=== PATIENT | female | born 1955 | race Caucasian/White ===

== ENCOUNTER → 2016-10-09 | Outpatient (CLI) | payer MEDICARE, OTHER ==
[2014-08-26 11:27] VITALS: BP 134/79
[~2016-10-09] MED LIST: ALPR0.5T PO; CEPH-264 PO; DIPH25CA58 PO; ERYT30GE2 TP; ESOM40CA PO; FAMO-63 PO; FERR-26 PO; FLUO20CA16 PO; GABA-585 PO; HYDR12.53 PO; IBUP200T58 PO; LISI20TA PO; METO-269 PO; METR55GE TP; OXYC-244 PO; OXYC10TA32 PO; POTA20TA4 PO; SIMV20TA3 PO; Tizanidine Hcl PO
--- NOTE | 2016-10-09 11:05 | RAD ---
DATE: 10/09/2016 EXAM: DIGITAL SCREEN BILAT W/CAD HISTORY: Routine screening COMPARISON: 03/26/2015 This study was interpreted with the benefit of Computerized Aided Detection (CAD). FINDINGS: There are scattered fibroglandular densities in the breasts in a heterogeneous pattern. No new or enlarging breast densities are seen. Minimal benign type calcifications present. No suspicious microcalcifications have developed. Benign-appearing lymph node type densities are present in the axillary regions. IMPRESSION: Stable mammograms without evidence of malignancy. BI-RADS CATEGORY: 2 BENIGN FINDING(S) RECOMMENDED FOLLOW-UP: 12M 12 MONTH FOLLOW-UP PQRS compliance statement: Patient information was entered into a reminder system with a target due date for the next mammogram. Mammography is a sensitive method for finding small breast cancers, but it does not detect them all and is not a substitute for careful clinical examination. A negative mammogram does not negate a clinically suspicious finding and should not result in delay in biopsying a clinically suspicious abnormality. "Our facility is accredited by the [employer] Mammography [employer]."
== END | disposition home or self-care (01) ==
LOC: MAMMO 10:24
PROVIDERS: ATTEND Internal Medicine
DX: Z12.31 Encounter for screening mammogram for malignant neoplasm of breast (principal)
CPT/HCPCS: G0202; 77067

== ENCOUNTER → 2016-11-08 | Outpatient (CLI) | payer MEDICARE, OTHER ==
[2014-08-26 11:27] VITALS: BP 134/79
--- NOTE | 2016-11-08 10:03 | KCIC ---
PROCEDURE MR of the left hip HISTORY Left hip pain. Trochanteric bursitis. Pain for about 1 year, getting worse. TECHNIQUE Routine multiplanar sequences are obtained. COMPARISON None FINDINGS No evidence of bone destruction or acute fracture. No femoral head osteonecrosis. Small subcortical lesion at the anterior left femoral neck, likely a small reactive cyst. No significant joint effusion. Small partial-thickness undersurface tear at the superior labrum, at 12 o'clock. No advanced osteoarthritis. High-grade tear, likely a complete rupture, of the left gluteus minimus tendon from greater trochanter with about 1 centimeter retraction.. Mild surrounding fluid. Left gluteus medius tendon is intact. Hamstring tendon intact. Iliopsoas tendon intact. No acute soft tissue fluid collection identified. Diagnostically limited large [id number] coronal survey sequence demonstrate a probable right acetabular labral tear as well. IMPRESSION 1. Small tear of the left labrum, at 12 o'clock. 2. High-grade tear of the left gluteus minimus tendon at the greater trochanter attachment. 3. Diagnostically limited survey scan also suggests a right labrum tear. Electronically signed by: Santo oCllins MD (Nov 08, 2016 10:01:47)
== END | disposition home or self-care (01) ==
LOC: KCIC MRI 07:41
PROVIDERS: ATTEND Nurse Practitioner Gerontology
DX: S73.192A Other sprain of left hip, initial encounter (principal); M70.62 Trochanteric bursitis, left hip; X58.XXXA Exposure to other specified factors, initial encounter; Y93.89 Activity, other specified; Y92.89 Other specified places as the place of occurrence of the external cause; Y99.8 Other external cause status
CPT/HCPCS: 73721

== ENCOUNTER → 2017-07-26 | Outpatient (CLI) | payer MEDICARE, OTHER ==
[2017-07-26] MEDS: GADOBUTROL 7.5 MMOL/7.5 ML VIAL IV (08:45)
== END | disposition home or self-care (01) ==
LOC: KCIC MRI 08:00
DX: R41.0 Disorientation, unspecified (principal); G93.89 Other specified disorders of brain; I67.1 Cerebral aneurysm, nonruptured
CPT/HCPCS: 70553; A9585

== ENCOUNTER → 2017-10-19 | Outpatient (CLI) | payer MEDICARE, OTHER | END | disposition home or self-care (01) | LOC: MAMMO 09:34 | DX: N64.4 Mastodynia (principal) | CPT/HCPCS: 76641; 77066; G0279 ==

== ENCOUNTER → 2018-05-22 | Outpatient (CLI) | payer MEDICARE, OTHER ==
[2014-08-26 11:27] VITALS: BP 134/79
[~2018-05-22] MED LIST changes: -FERR-26 PO; +FERR325T14 PO; -OXYC-244 PO; +OXYC-327 PO; -OXYC10TA32 PO; +OXYC10TA45 PO
--- NOTE | 2018-05-22 16:33 | KCIC ---
History: Postmenopausal, white female, screening, history of adult fracture. Comparison: March 26, 2015. Findings: Bone Densitometry was performed with dual photon absorption of the lumbar spine and left hip. Lumbar Spine: Bone density is 0.892 g/cm2 for L1-L4. T-Score is -1.4. Z-score is 0.3. Bone mineral density of the lumbar spine demonstrates 10.4% increase from previous study. There is mild levoconvex scoliosis of the lumbar spine. Left hip: Bone density is 0.755 g/cm2. T-Score is -1.5. Z-score is -0.3. Bone mineral density of the left hip demonstrates 2.8% decrease from previous study. IMPRESSION: Osteopenia of the lumbar spine and left hip. World Health definition of osteoporosis and osteopenia: Normal = T-Score at or above -1.0; osteopenia = T-score between -1.0 and -2.5; osteoporosis = T-score at or below -2.5 Electronically signed by: Santo Lehman MD (05/22/2018 4:31 PM) [id number]
== END | disposition home or self-care (01) ==
LOC: KCIC DEXA 11:14
PROVIDERS: ATTEND Pediatrics
DX: Z13.820 Encounter for screening for osteoporosis (principal); M85.89 Other specified disorders of bone density and structure, multiple sites
CPT/HCPCS: 77080

== ENCOUNTER → 2018-06-19 | Outpatient (CLI) | payer MEDICARE, OTHER ==
[2014-08-26 11:27] VITALS: BP 134/79
--- NOTE | 2018-06-19 09:25 | RAD ---
Bilateral lower extremity arterial ultrasound with ankle-brachial indices, 06/19/2018: HISTORY: Leg weakness, claudication, diminished pulses Duplex evaluation of the major arteries in both lower extremities was performed including grayscale, color-flow and spectral Doppler analysis. There are mild scattered atherosclerotic plaques bilaterally. The right common femoral, superficial femoral and popliteal arteries demonstrate triphasic Doppler waveforms. No significant focal velocity acceleration is seen to suggest significant stenosis. Patent anterior tibial, posterior tibial and peroneal arteries are present in the right lower leg demonstrating biphasic and triphasic Doppler waveforms. The right dorsalis pedis artery demonstrates a good triphasic Doppler waveform. On the left, the common femoral, superficial femoral and popliteal arteries all demonstrate triphasic Doppler waveforms. No significant velocity acceleration is seen in these vessels to suggest significant focal stenosis. Patent posterior tibial, anterior tibial and peroneal arteries are present in the left calf with predominantly triphasic Doppler waveforms. The left dorsalis pedis artery demonstrates a good triphasic Doppler waveform. Resting MAMIE measurements were also obtained. Normal MAMIE readings of 1.3 on the right and 1.3 on the left were obtained. IMPRESSION: 1. Mild scattered atherosclerotic plaquing bilaterally without evidence of significant arterial stenotic or occlusive disease. 2. Normal bilateral resting MAMIE measurements. Electronically signed by: Kaveh Arce MD (06/19/2018 9:22 AM) [facility]
== END | disposition home or self-care (01) ==
LOC: US 06:41
PROVIDERS: ATTEND Internal Medicine Pulmonary Disease
DX: I70.293 Other atherosclerosis of native arteries of extremities, bilateral legs (principal)
CPT/HCPCS: 93922; 93925

== ENCOUNTER 2018-11-12 10:54 | Emergency (ER) | payer MEDICARE, OTHER ==
[~2018-11-12] VITALS: Ht 177.8 cm; Wt 70.8 kg
[~2018-11-12 10:54] MED LIST changes: -HYDR12.53 PO; +HYDR12.575 PO; -OXYC-327 PO; -OXYC10TA45 PO; +OXYC10TA46 PO; +OXYC1TAB19 PO
--- NOTE | 2018-11-12 11:21 | PHYS DOC ---
Past Medical History Past Medical History: COPD, Hypertension Additional Past Medical Histor: lung nodules, brain aneurysm, Past Surgical History: Appendectomy, Additional Past Surgical Histo: back surgery, brain surgery from aneurysm Alcohol Use: None Drug Use: None Adult General Chief Complaint Chief Complaint: FLANK PAIN [facility] HPI Patient is a 62 year old female with a history of COPD, hypertension, who presents to the ED today complaining of 8 out of 10 right flank pain that began one week ago. Patient states the pain is worse when she moves around especially trying to move herself patient denies any fever coughing or congestion. She states she has history of chronic shortness of breath from COPD. She states she does not use oxygen at home. Patient denies any urgency frequency dysuria. Review of Systems Review of Systems Constitutional: Denies fever or chills [] Eyes: Denies change in visual acuity, redness, or eye pain [] HENT: Denies nasal congestion or sore throat [] Respiratory: Reports chronic shortness of breath Denies cough Cardiovascular: No additional information not addressed in HPI [] GI: Reports right flank pain. Denies abdominal pain, nausea, vomiting, bloody stools or diarrhea [] : Denies dysuria or hematuria [] Musculoskeletal: Denies back pain or joint pain [] Integument: Denies rash or skin lesions [] Neurologic: Denies headache, focal weakness or sensory changes [] Endocrine: Denies polyuria or polydipsia [] All other systems were reviewed and found to be within normal limits, except as documented in this note. Current Medications Current Medications Current Medications Medications (Trade) Dose Ordered [facility] Start Time Stop Time Status Last Admin Dose Admin Fentanyl Citrate (Fentanyl 2ml Vial) 50 mcg PRN Q15MIN PRN 11/12/18 11:30 11/12/18 15:56 DC 11/12/18 11:37 50 MCG Allergies Allergies Allergies Coded Allergies Type Severity Reaction Last Updated Verified aspirin Allergy Intermediate 02/09/16 Yes codeine Allergy Intermediate itching 08/25/14 Yes morphine Allergy Intermediate "unconscious" 08/25/14 Yes Physical Exam Physical Exam Constitutional: Well developed, well nourished, no acute distress, non-toxic appearance. [] HENT: Normocephalic, atraumatic, bilateral external ears normal, oropharynx moist, no oral exudates, nose normal. [] Eyes: PERRLA, EOMI, conjunctiva normal, no discharge. [] Neck: Normal range of motion, no tenderness, supple, no stridor. [] Cardiovascular:Heart rate regular rhythm, no murmur [] Lungs & Thorax: Bilateral breath sounds clear to auscultation [] Abdomen: Bowel sounds normal, soft, no tenderness, no masses, no pulsatile masses. [] Skin: Warm, dry, no erythema, no rash. [] Back: No tenderness, mild right CVA tenderness. [] Extremities: No tenderness, no cyanosis, no clubbing, ROM intact, no edema. [] Neurologic: Alert and oriented X 3, normal motor function, normal sensory function, no focal deficits noted. [] Psychologic: Affect normal, judgement normal, mood normal. [] Current Patient Data Vital Signs Vital Signs Date Time Temp Pulse Resp B/P (MAP) Pulse Ox O2 Delivery O2 Flow Rate FiO2 11/12/18 15:30 82 20 135/80 (98) 89 Nasal Cannula 2.0 11/12/18 11:00 98.2 98.2 Lab Values Laboratory Tests Test 11/12/18 11:30 11/12/18 13:15 White Blood Count 5.1 x10^3/uL (4.0-11.0) Red Blood Count 3.67 x10^6/uL (3.50-5.40) Hemoglobin 8.0 g/dL (12.0-15.5) L Hematocrit 26.3 % (36.0-47.0) L Mean Corpuscular Volume 72 fL (79-100) L Mean Corpuscular Hemoglobin 22 pg (25-35) L Mean Corpuscular Hemoglobin Concent 30 g/dL (31-37) L Red Cell Distribution Width 20.4 % (11.5-14.5) H Platelet Count 290 x10^3/uL (140-400) Neutrophils (%) (Auto) 70 % (31-73) Lymphocytes (%) (Auto) 20 % (24-48) L Monocytes (%) (Auto) 8 % (0-9) Eosinophils (%) (Auto) 1 % (0-3) Basophils (%) (Auto) 1 % (0-3) Neutrophils # (Auto) 3.6 x10^3uL (1.8-7.7) Lymphocytes # (Auto) 1.0 x10^3/uL (1.0-4.8) Monocytes # (Auto) 0.4 x10^3/uL (0.0-1.1) Eosinophils # (Auto) 0.1 x10^3/uL (0.0-0.7) Basophils # (Auto) 0.0 x10^3/uL (0.0-0.2) Platelet Estimate Adequate (ADEQUATE) Polychromasia Occasional Hypochromasia Slight Anisocytosis Slight Microcytosis Slight Ovalocytes Occ Sodium Level 141 mmol/L (136-145) Potassium Level 3.3 mmol/L (3.5-5.1) L Chloride Level 106 mmol/L (98-107) Carbon Dioxide Level 27 mmol/L (21-32) Anion Gap 8 (6-14) Blood Urea Nitrogen 15 mg/dL (7-20) Creatinine 0.9 mg/dL (0.6-1.0) Estimated GFR (Cockcroft-Gault) 63.0 BUN/Creatinine Ratio 17 (6-20) Glucose Level 108 mg/dL (70-99) H Calcium Level 8.2 mg/dL (8.5-10.1) L Total Bilirubin 0.1 mg/dL (0.2-1.0) L Aspartate Amino Transferase (AST) 26 U/L (15-37) Alanine Aminotransferase (ALT) 22 U/L (14-59) Alkaline Phosphatase 77 U/L (46-116) Creatine Kinase 91 U/L (26-192) Creatine Kinase MB (Mass) 1.2 ng/mL (0.0-3.6) Creatine Kinase MB Relative Index 1.3 % (0-4) Troponin I Quantitative < 0.017 ng/mL (0.000-0.055) QG-Edr-J-Type Natriuretic Peptide 5961 pg/mL (0-124) H Total Protein 6.8 g/dL (6.4-8.2) Albumin 3.1 g/dL (3.4-5.0) L Albumin/Globulin Ratio 0.8 (1.0-1.7) L Lipase 179 U/L (73-393) Urine Collection Type Unknown Urine Color Yellow Urine Clarity Clear Urine pH 6.0 Urine Specific [place] 1.025 Urine Protein Negative mg/dL (NEG-TRACE) Urine Glucose (UA) Negative mg/dL (NEG) Urine Ketones (Stick) Negative mg/dL (NEG) Urine Blood Negative (NEG) Urine Nitrite Negative (NEG) Urine Bilirubin Negative (NEG) Urine Urobilinogen Dipstick 0.2 mg/dL (0.2 mg/dL) Urine Leukocyte Esterase Trace (NEG) Urine RBC 0 /HPF (0-2) Urine WBC 5-10 /HPF (0-4) Urine Squamous Epithelial Cells Mod /LPF Urine Bacteria Few /HPF (0-FEW) Urine Opiates Screen Pos (NEG) Urine Methadone Screen Neg (NEG) Urine Barbiturates Neg (NEG) Urine Phencyclidine Screen Neg (NEG) Urine Amphetamine/Methamphetamine Neg (NEG) Urine Benzodiazepines Screen Pos (NEG) Urine Cocaine Screen Neg (NEG) Urine Cannabinoids Screen Neg (NEG) Urine Ethyl Alcohol Neg (NEG) Laboratory Tests 11/12/18 11:30 Laboratory Tests 11/12/18 11:30 EKG EKG 11:[address] Field sinus rhythm HR 90 no STEMI[] Radiology/Procedures Radiology/Procedures []PROCEDURE: CT ABDOMEN PELVIS WO CONTRAST CT study of the abdomen and pelvis without contrast Clinical indications: Right flank pain for one week. COMPARISON: August 24, 2014. TECHNIQUE: Noncontrast helical CT scanning of the abdomen and pelvis was performed. Without contrast, the sensitivity to detect organ pathology and GI tract pathology is decreased. PQRS compliance Statement One or more of the following individualized dose reduction techniques were utilized for this study: 1. Automated exposure control 2. Adjustment of the mA and/or kV according to patient size 3. Use of iterative reconstruction technique FINDINGS: The liver and spleen and pancreas are homogeneous in appearance on this noncontrast study. Gallbladder is normal and no extrahepatic biliary ductal dilatation is seen. No adrenal mass is evident. No hydronephrosis or hydroureter or urinary tract stone is evident. No renal mass is seen on either side on this noncontrast study. Urinary bladder wall is smooth. Uterus is surgically absent. No focal aneurysmal dilatation of the abdominal aorta is seen. No enlarged abdominal or pelvic lymphadenopathy is evident. There is moderate fecal retention throughout the colon. No bowel obstruction is evident. The appendix is not visualized but there are no secondary CT findings of appendicitis. Terminal ileum is unremarkable. The stomach is not distended. No free air or free fluid or mesenteric edema is seen. Small posterior right sided pleural effusion is seen. Adjacent compressive atelectasis or right lung base infiltrate is seen. Chronic erosion or lytic process of the right side of the L5 vertebral body is seen involving the lamina and facet joint area. There is associated soft tissue thickening here as well. This is unchanged. This could represent a postoperative finding of a hemilaminectomy therefore. No lytic process is seen elsewhere. IMPRESSION: No acute abnormality of the abdomen or pelvis. Specifically, no urinary tract stone or hydronephrosis or hydroureter is seen. Small right-sided pleural effusion and associated compressive atelectasis or adjacent right lung base infiltrate. Therefore pneumonia is a possibility. Chronic erosion or absence of the posterior lateral aspect of the right side of L5 in the region of the lamina and facet joint. Since this is unchanged from August 24, 2014, this may represent a postoperative finding of a hemilaminectomy. Correlation with clinical history is recommended. Electronically signed by: Doug Burton MD (11/12/2018 12:21 PM) [id number] DICTATED and SIGNED BY: DOUG BURTON MD DATE: 11/12/18 1221 PROCEDURE: PORTABLE CHEST 1V PORTABLE CHEST 1V History: Right rib pain and flank pain Comparison: August 06, [address] Findings: Single view of the chest is submitted. There is now focus of abnormal opacity of the mid to superior right hemithorax. There is likely emphysema. There is no dependent pleural fluid or pneumothorax. There is a somewhat tortuous thoracic aorta. Impression: 1. There is now focus of abnormal opacity of the mid to superior right hemithorax, could be due to more focal mild infiltrate, mass not excluded at this point in time for which short-term follow-up after treatment advised. There is suspected emphysema. Electronically signed by: Ciara Angel MD (11/12/2018 11:45 AM) [facility] DICTATED and SIGNED BY: CIARA ANGEL MD DATE: 11/12/18 1147 Course & Med Decision Making Course & Med Decision Making Pertinent Labs and Imaging studies reviewed. (See chart for details) This is a 62-year-old female presenting to the ED today with right flank pain that began a week ago. CBC with a normal WBC, hemoglobin 8.0, hematocrit 26.3, patient states this is a baseline for hemoglobin and hematocrit, she has history of anemia and is on iron. Urine analysis is noted for trace amount of leukocytes. CMP would not acute findings. CT of the abdomen and pelvic was negative for any acute finding, noted for right pleural effusion and possible infiltrate. Chest x-ray was noted for possible right infiltrate though they could not exclude a mass. 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 Offered admission to the hospital, patient is refused, she states she'll follow up with her own PCP D/c on levaquin she states her her 02 sats at the current numbers of 89-94% on RA is actually her baseline. She states she will continue to f/u with her PCP and sprinkling system installer. Dragon Disclaimer Dragon Disclaimer This electronic medical record was generated, in whole or in part, using a voice recognition dictation system. Departure Departure Impression: Primary Impression: Chronic anemia Additional Impressions: Right lower lobe pulmonary infiltrate Hypoxemia Disposition: HOME, SELF-CARE Condition: STABLE Referrals: MARIANNA STRANGE MD (PCP) follow up as soon as you can Patient Instructions: Anemia, FAQs, Pneumonia, Adult Additional Instructions: You were seen in the emergency room and you x-ray was was concerning for pneumonia. We put you on antibiotics, please take them as prescribed until completed.You also have anemia, ensure you are taking your iron as prescribed. Your oxygen saturation is low ensure you are taking your iron. We recommend you make sure you follow-up with your own doctor and sprinkling system installer as soon as you can Scripts Levofloxacin (LEVAQUIN) 500 Mg Tablet 1 TAB PO DAILY, #7 TAB Prov: MARIANNE CONRAD APRN 11/12/18 Problem Qualifiers MARIANNE CONRAD APRN Nov 12, 2018 11:21
--- NOTE | 2018-11-12 11:23 | EKG ---
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
[2018-11-12] MEDS ORDERED: fentaNYL PF VIAL 100 MCG/2 ML VIAL IV PRN (11:30)
[2018-11-12 11:43] LABS: BASO % 1 % (0-3); EOS # 0.1 x10^3/uL (0.0-0.7); EOS % 1 % (0-3); HEMATOCRIT 26.3 % (36.0-47.0); LYMPH % 20 % (24-48); MEAN CORPUSCULAR HEMOGLOBIN 22 pg (25-35); MEAN CORPUSCULAR HGB CONC 30 g/dL (31-37); MEAN CORPUSCULAR VOLUME 72 fL (79-100); MONO # 0.4 x10^3/uL (0.0-1.1); MONO % 8 % (0-9); NEUT # 3.6 x10^3uL (1.8-7.7); NEUT % 70 % (31-73); PLATELET COUNT 290 x10^3/uL (140-400); RED BLOOD COUNT 3.67 x10^6/uL (3.50-5.40); RED CELL DISTRIBUTION WIDTH 20.4 % (11.5-14.5); WHITE BLOOD COUNT 5.1 x10^3/uL (4.0-11.0)
--- NOTE | 2018-11-12 11:48 | RAD ---
PORTABLE CHEST 1V History: Right rib pain and flank pain Comparison: August 06, [address] Findings: Single view of the chest is submitted. There is now focus of abnormal opacity of the mid to superior right hemithorax. There is likely emphysema. There is no dependent pleural fluid or pneumothorax. There is a somewhat tortuous thoracic aorta. Impression: 1. There is now focus of abnormal opacity of the mid to superior right hemithorax, could be due to more focal mild infiltrate, mass not excluded at this point in time for which short-term follow-up after treatment advised. There is suspected emphysema. Electronically signed by: Hector Jay MD (11/12/2018 11:45 AM) [facility]
[2018-11-12 12:05] LABS: CALCIUM 8.2 mg/dL (8.5-10.1); CREATININE 0.9 mg/dL (0.6-1.0); POTASSIUM 3.3 mmol/L (3.5-5.1)
[2018-11-12 12:10] LABS: ALBUMIN 3.1 g/dL (3.4-5.0); ALBUMIN/GLOBULIN RATIO 0.8 (1.0-1.7); TOTAL BILIRUBIN 0.1 mg/dL (0.2-1.0); TOTAL PROTEIN 6.8 g/dL (6.4-8.2)
--- NOTE | 2018-11-12 12:24 | RAD ---
CT study of the abdomen and pelvis without contrast Clinical indications: Right flank pain for one week. COMPARISON: August 24, 2014. TECHNIQUE: Noncontrast helical CT scanning of the abdomen and pelvis was performed. Without contrast, the sensitivity to detect organ pathology and GI tract pathology is decreased. PQRS compliance Statement One or more of the following individualized dose reduction techniques were utilized for this study: 1. Automated exposure control 2. Adjustment of the mA and/or kV according to patient size 3. Use of iterative reconstruction technique FINDINGS: The liver and spleen and pancreas are homogeneous in appearance on this noncontrast study. Gallbladder is normal and no extrahepatic biliary ductal dilatation is seen. No adrenal mass is evident. No hydronephrosis or hydroureter or urinary tract stone is evident. No renal mass is seen on either side on this noncontrast study. Urinary bladder wall is smooth. Uterus is surgically absent. No focal aneurysmal dilatation of the abdominal aorta is seen. No enlarged abdominal or pelvic lymphadenopathy is evident. There is moderate fecal retention throughout the colon. No bowel obstruction is evident. The appendix is not visualized but there are no secondary CT findings of appendicitis. Terminal ileum is unremarkable. The stomach is not distended. No free air or free fluid or mesenteric edema is seen. Small posterior right sided pleural effusion is seen. Adjacent compressive atelectasis or right lung base infiltrate is seen. Chronic erosion or lytic process of the right side of the L5 vertebral body is seen involving the lamina and facet joint area. There is associated soft tissue thickening here as well. This is unchanged. This could represent a postoperative finding of a hemilaminectomy therefore. No lytic process is seen elsewhere. IMPRESSION: No acute abnormality of the abdomen or pelvis. Specifically, no urinary tract stone or hydronephrosis or hydroureter is seen. Small right-sided pleural effusion and associated compressive atelectasis or adjacent right lung base infiltrate. Therefore pneumonia is a possibility. Chronic erosion or absence of the posterior lateral aspect of the right side of L5 in the region of the lamina and facet joint. Since this is unchanged from August 24, 2014, this may represent a postoperative finding of a hemilaminectomy. Correlation with clinical history is recommended. Electronically signed by: Skinny Burton MD (11/12/2018 12:21 PM) [id number]
[2018-11-12 13:13] LABS: ANISOCYTOSIS SLIGHT; HYPOCHROMIA SLIGHT; PLT ESTIMATE ADEQUATE (ADEQUATE)
[2018-11-12 13:14] LABS: MICROCYTOSIS SLIGHT; OVALOCYTES OCC; POLYCHROMASIA OCCASIONAL
[2018-11-12 13:31] LABS: BILIRUBIN,URINE NEGATIVE (NEG); CLARITY,URINE CLEAR; COLOR,URINE YELLOW; NITRITE,URINE NEGATIVE (NEG); PROTEIN,URINE NEGATIVE (NEG-TRACE); UROBILINOGEN,URINE 0.2 mg/dL (0.2 mg/dL)
[2018-11-12 13:37] LABS: SQUAMOUS EPITHELIAL CELL,UR MOD /LPF
[2018-11-12 13:38] LABS: BACTERIA,URINE FEW /HPF (0-FEW); BARBITURATES NEG (NEG); BENZODIAZEPINES POS (NEG); CANNABINOIDS NEG (NEG); COCAINE NEG (NEG); METHADONE NEG (NEG); OPIATES POS (NEG); PHENCYCLIDINE NEG (NEG); RBC,URINE 0 /HPF (0-2)
[2018-11-12 13:41] LABS: AMPHETAMINE/METHAMPHETAMINE NEG (NEG)
[2018-11-12 15:30] VITALS: BP 135/80
[2018-11-12] MEDS ORDERED: LEVO500T59 PO (15:30)
== END 2018-11-12 15:55 | disposition home or self-care (01) ==
LOC: ER 10:54
DX: D64.89 Other specified anemias (principal); R09.02 Hypoxemia; R91.8 Other nonspecific abnormal finding of lung field; R10.9 Unspecified abdominal pain; J44.9 Chronic obstructive pulmonary disease, unspecified; I10 Essential (primary) hypertension; Z90.89 Acquired absence of other organs; Z98.890 Other specified postprocedural states; Z88.6 Allergy status to analgesic agent; Z88.5 Allergy status to narcotic agent
CPT/HCPCS: 36415; 71045; 74176; 80053; 80307; 81001; 82553; 83690; 83880; 84484; 85025; 87086; 93005; 99285; J3010

== ENCOUNTER → 2019-08-13 | Outpatient (CLI) | payer OTHER ==
[~2019-08-13] MED LIST changes: +IBUP200C9 PO; +LEVO500T59 PO; +SIMV20TA18 PO; -SIMV20TA3 PO
--- NOTE | 2019-08-13 14:21 | PAIN ---
DATE OF SERVICE: 08/13/2019 INITIAL CONSULTATION FOR PAIN CLINIC CHIEF COMPLAINT: Low back pain. HISTORY OF PRESENT ILLNESS: This is a 63-year-old female who presents with history of pain in the low back for many years, worsened since starting in 1997, worse over the past year or so. The patient reports no specific injury or action that she is aware of, but she is getting worse with walking, standing, changing positions, especially extension of the lumbar spine. The patient describes the pain as throbbing with radiating pain across the low back into the posterior gluteus, cramping pain without significant radiation to the lower extremities. The patient reports it is worse with activity, walking, standing or prolonged sitting for greater than 30 minutes, can awaken from her sleep but not most nights, it does not affect her bowel or bladder control but does affect her ability to walk. She is not using any assistive devices, however. She has had previous epidural injections in the past, physical therapy as well as doing exercises, strengthening and stretching and walking daily. Currently, the patient has tried Percocet, Vicodin and Valium all of which have helped to a moderate extent, but no Percocet in the last year. Vicodin, she is currently taking and also currently taking Valium. The patient rates her disability rating from 0-10, 10 being the worst, as a 1 with family home responsibilities, recreation, 6 with social activity, 3 with occupation, 1 with self-care and 0 with sexual behavior and life support activities. The patient did have MRI scan of the lumbar spine showing a lumbar scoliotic curvature and multilevel disk bulges, more pronounced foraminal narrowing on the left at L4-L5 with [id number] narrowing at far left lateral half of the disk space identified L4-L5, small broad-based central, left paracentral and left lateral recess and foraminal disk bulge. L5-S1 shows moderate degenerative loss of height as well with right laminotomy change noted. The patient reports no loss of motor function in the lower extremities, but significant fatigability in the back and especially with extension of the lumbar spine and axial loading of the lumbar spine. PAST MEDICAL HISTORY: Significant for COPD, cigarette smoking, quit in 2005, hypertension, weight loss, arthritis. PAST SURGICAL HISTORY: Previous surgeries include lumbar laminectomy in 1998 and 1997, 6 surgeries total she reports on her lumbar spine. The patient reports cataract extractions, hysterectomy, brain aneurysm clipping in 2006, appendectomy. CURRENT MEDICATIONS: Include ibuprofen, metoprolol, Pepcid, Benadryl, hydrochlorothiazide, Nexium. ALLERGIES: THE PATIENT IS ALLERGIC TO MORPHINE. FAMILY HISTORY: Significant for hypertension. SOCIAL HISTORY: The patient does not drink alcohol, does not smoke, quit many years ago, is not using any illegal, illicit or recreational drugs. She is single, lives locally in [place], [place]. REVIEW OF SYSTEMS: The patient's review of systems is positive for those items mentioned in history of present illness. All systems reviewed and otherwise negative. It is complete, full and well documented on the patient's chart. PHYSICAL EXAMINATION: VITAL SIGNS: The patient's blood pressure is 137/71, pulse 84, respirations are 16, temperature 98.4 degrees Fahrenheit, height is 5 feet 10 inches, weight is 152 pounds. GENERAL: The patient is awake, alert, oriented, appropriate, very pleasant demeanor. HEENT: Shows normocephalic, atraumatic. Extraocular movements are intact and symmetrical. Oral cavity shows mucous membranes moist and pink. Dentition is intact. NECK: Shows anterior throat supple without palpable lymphadenopathy noted. Swallow reflex symmetrical. CHEST: Shows normal on inspection. Breath sounds are clear to auscultation bilaterally. HEART: Shows S1, S2 clear. No murmurs auscultated. ABDOMEN: Soft, nontender, nondistended. No palpable organomegaly is noted. No rebound or guarding demonstrated. BACK: Shows spine grossly in the midline. Normal-appearing thoracic kyphosis and minor flattening of lumbar lordotic curvature with well-healed surgical scarring noted in the lumbar distribution. Lumbar paraspinous muscle shows symmetrical on inspection, on palpation shows some moderate tenderness diffusely bilaterally, but only diffusely without significant radiation. The patient does show good rotational motion of lumbar spine with some moderate tenderness, more to the right than the left, but with extension of the spine significant tenderness across the low back bilaterally with axial loading and posterior extension greater than 10 degrees, forward flexion 45 degrees is performed without difficulty and without significant pain reported. EXTREMITIES: The patient's lower extremities show deep tendon reflexes at 2+ in the patellar and 1+ in tendo-calcaneus tendons. Motor exam is approximately 4 on a scale of 5 with right dorsiflexion, extension, 5/5 on the left. Peripheral pulses are 1+ in posterior tibia. No peripheral edema is noted. Lower extremities are warm and dry to touch, equal in color and appearance. Straight leg raise noted to be negative for reproduction of radicular symptoms. Gaenslen's and Benoit's maneuvers are negative bilaterally as well. The patient is able to stand, stand on her toes without significant difficulty, walks with a slight favoring gait, does appear to favor the right lower extremity slightly, not using any assistive devices such as canes or walkers to ambulate. SKIN: Shows warm and dry, good turgor. No edema. No sores, rashes or bruising throughout. IMPRESSION: 1. This is a 63-year-old female with a long history, worse over the past year, low back pain, status post lumbar laminectomy and 6 total lumbar surgeries by her report. 2. MRI scan of lumbar spine as noted. 3. Hypertension. 4. Chronic obstructive pulmonary disease. 5. Arthritis. PLAN: Options were discussed with the patient including conservative medical managements, physical therapies and interventional techniques. She would like to pursue interventional techniques. We discussed lumbar facet injections as she appears to have some facetogenic pain, especially with posterior extension and axial loading of the lumbar spine. The patient is interested in pursuing this. We will wait for preauthorization from her insurance provider. Once this is obtained, the patient will return for bilateral L4-L5 and L5-S1 facet joint injections at that time. The patient will continue to do stretching and strengthening exercises and will continue with daily walking as tolerated as well. JONATHON YOUNG MD DR: [email or web address]/[email or web address] JOB#: [id number] / [id number]
== END | disposition home or self-care (01) ==
LOC: PNCL 09:31
PROVIDERS: ATTEND Anesthesiology
DX: M54.5 Low back pain (principal); J44.9 Chronic obstructive pulmonary disease, unspecified; I10 Essential (primary) hypertension; M19.90 Unspecified osteoarthritis, unspecified site; Z88.5 Allergy status to narcotic agent; Z87.891 Personal history of nicotine dependence
CPT/HCPCS: G0463